=== PATIENT | female | born 1985 | race Caucasian/White ===

== ENCOUNTER → 2019-08-12 | Day surgery (SDC) | payer OTHER ==
[~2019-08-12] MED LIST: CYCL10TA2 PO; IV RINGERS,LACTATED 1000ML 1,000 ML IV ONE; LIDOCAINE 2% PF 5 ML VIAL. ONE; ONDA4TAB7 PO; PARO20TA99 PO; PROPOFOL 40 ML IV ONE; TOPI50TA38 PO
[2019-08-12 13:46] VITALS: BP 105/75
--- NOTE | 2019-08-16 09:06 | PATHOLOGY ---
[facility] Accession Number: [id number] . 01 Material submitted: . PART A: duodenum - DUODENAL BXS PART B: colon - RANDOM COLON BX . 01 Clinical history: . Abdominal pain, diarrhea . 02 Diagnosis: A. Duodenal biopsies: - No significant pathologic abnormalities. . B. Colonic mucosa, random colon biopsies: - No significant pathologic abnormalities. . (JPM:support team member; 08/13/2019) MBR 08/13/2019 1048 Local . 02 Comment: Sections of the duodenal biopsy reveal segments of duodenal and small intestine mucosa. Where best oriented, the mucosal villi show no sprue-like changes or significant inflammatory changes. . Sections of the random colon biopsy reveal multiple segments of colonic mucosa containing a several, focally hyperplastic mucosal-associated lymphoid aggregates. There is no evidence of a chronic destructive colitis, lymphocytic colitis, or collagenous colitis. . (JPM:support team member; 08/13/2019) . 02 Electronically signed: . Sravan Roldan MD, Pathologist NPI- [id number] . 01 Gross description: . A. Received in formalin labeled "No Garrison, duodenal BX's," and additionally labeled on the requisition as "rule out celiac," are multiple segments of braga soft tissue measuring 1.2 x 0.7 x 0.1 cm in aggregate dimensions. The specimen is filtered and entirely submitted in cassette A1. . B. Received in formalin labeled "No Garrison, random colon BX's," and additionally labeled on the requisition as "BX," are multiple segments of braga soft tissue measuring 2.4 x 0.5 x 0.1 cm in aggregate dimensions. The specimen is filtered and entirely submitted in cassette B1. (TSD; 08/12/2019) TOB/TOB 08/12/[address] [place] [address] . 02 Pathologist provided ICD-10: R10.9, R19.7 . 02 CPT . 685238, 103919 Specimen Comment: A courtesy copy of this report has been sent to [phone], [phone] Specimen Comment: [id number] Specimen Comment: Report sent to / DR FRANCE Performed at: 01 [facility] [address] [facility] [address], [place] [id number] MD Isac Solorio MD Phone: [phone] Performed at: 02 [facility] [address] [place], [place] [id number] MD Sravan Roldan MD Phone: [phone]
== END ==
LOC: SURG 11:38
PROVIDERS: ATTEND Internal Medicine Gastroenterology
DX: K52.9 Noninfective gastroenteritis and colitis, unspecified (principal); K64.0 First degree hemorrhoids; K31.89 Other diseases of stomach and duodenum; K63.89 Other specified diseases of intestine; F41.9 Anxiety disorder, unspecified; F15.90 Other stimulant use, unspecified, uncomplicated; Z72.89 Other problems related to lifestyle; Z88.1 Allergy status to other antibiotic agents; Z88.0 Allergy status to penicillin; Z88.8 Allergy status to other drugs, medicaments and biological substances; Z87.891 Personal history of nicotine dependence
CPT/HCPCS: 43239; 45380; 81025; 88305; J2001; J2704; 43235; 45378